=== PATIENT | male | born 1970 | race African-American/Black ===

== ENCOUNTER 2019-07-27 23:37 | Emergency (ER) | payer OTHER ==
[~2019-07-27] VITALS: Ht 185.4 cm; Wt 93.2 kg
[2019-07-28] MEDS ORDERED: ATOR1TAB21 PO (00:14)
[2019-07-28] MEDS ORDERED: COLA100C5 PO (00:14)
[2019-07-28] MEDS ORDERED: NOVOINJ12 SC (00:14)
[2019-07-28] MEDS ORDERED: PROV108A INH (00:14)
[2019-07-28] MEDS ORDERED: LISI10TA4 PO (00:14)
[2019-07-28] MEDS ORDERED: ASPI81CH33 PO (00:14)
[2019-07-28] MEDS ORDERED: NITR0.4S14 SL (00:14)
[2019-07-28] MEDS ORDERED: INSULANT SC (00:14)
[2019-07-28] MEDS ORDERED: [UNRECOGNIZED DRUG - CODE] XX (00:14)
[2019-07-28 00:43] LABS: BASO % 0.2 % (0.0-1.0); HEMATOCRIT 44.3 % (42.0-52.0); HEMOGLOBIN 14.9 g/dl (13.5-17.5); LYMPH # 1.8 10^3/uL (1.5-5.0); LYMPH % 17.6 % (24.0-44.0); MEAN CORPUSCULAR HGB CONC 33.6 g/dl (32.0-36.5); MEAN CORPUSCULAR VOLUME 86.2 fl (80.0-96.0); MONO # 0.4 10^3/uL (0.0-0.8); MONO % 3.9 % (0.0-5.0); NEUTROPHILS # 8.1 10^3/uL (1.5-8.5); NEUTROPHILS % 77.9 % (36.0-66.0); PLATELET COUNT, AUTOMATED 268 10^3/uL (150-450); RED BLOOD COUNT 5.14 10^6/uL (4.30-6.10); WHITE BLOOD COUNT 10.3 10^3/uL (4.0-10.0)
[2019-07-28 01:23] LABS: ALBUMIN 3.7 GM/DL (3.2-5.2); ALT/SGPT 59 U/L (12-78); BILIRUBIN,DIRECT 0.1 MG/DL (0.0-0.2); BILIRUBIN,TOTAL 0.4 MG/DL (0.2-1.0); CK-MB VALUE MASS 10.8 NG/ML (<3.6); CPK CREATINE PHOSPHOKINASE 1321 U/L (39-308); LIPASE 153 U/L (73-393); MB/CK RELATIVE INDEX 0.82 (< OR =4); TOTAL PROTEIN 7.2 GM/DL (6.4-8.2); TROPONIN I 1.52 NG/ML (< 0.10)
[2019-07-28] MEDS ORDERED: HEPARIN DRIP 25,000 UNITS in IV 1 EA IV SCH (01:29)
[2019-07-28] MEDS ORDERED: KETOROLAC 30 MG/ML VIAL (J1885) IV ONE (01:30)
[2019-07-28] MEDS ORDERED: NS 1,000 ML IV ONE (01:30)
[2019-07-28] MEDS ORDERED: IPRATROPIUM 0.5MG/ALBUTEROL 2.5MG INH SOL UD 3ML (DUONEB)(J7620) NEB ONE (01:30)
[2019-07-28] MEDS ORDERED: HEPARIN SOD (PORCINE) 5000 UNITS/ML VIAL IV ONE (01:30)
[2019-07-28] MEDS ORDERED: CLOPIDOGREL 300 MG TAB (PLAVIX) PO ONE (01:30)
[2019-07-28] MEDS ORDERED: NITROGLYCERIN 2% OINT 1 GM *U/D* PKT TOP ONE (01:30)
[2019-07-28] MEDS ORDERED: ONDANSETRON 4MG/2ML VIAL (J2405) As Ordered ONE (01:33)
[2019-07-28 01:35] LABS: VENOUS BASE EXCESS 1.2 (-2.0-2.0); VENOUS HCO3 28.5 MEQ/L (23.0-27.0); VENOUS PARTIAL PRESSURE CO2 55.6 mmHg (38.0-50.0); VENOUS PARTIAL PRESSURE O2 35.5 mmHg (30.0-50.0); VENOUS PH 7.328 UNITS (7.330-7.430); VENOUS STANDARD HCO3 24.6 MEQ/L; VENOUS TOTAL CO2 30.2 MEQ/L (24.0-28.0)
[2019-07-28 01:41] LABS: BLOOD UREA NITROGEN 16 MG/DL (7-18); CALCIUM LEVEL 9.5 MG/DL (8.5-10.1); CARBON DIOXIDE LEVEL 30 MEQ/L (21-32); CHLORIDE LEVEL 102 MEQ/L (98-107); CREATININE FOR GFR 1.36 MG/DL (0.70-1.30); GLOMERULAR FILTRATION RATE > 60.0 (>60); GLUCOSE, FASTING 270 MG/DL (70-100); POTASSIUM SERUM 4.4 MEQ/L (3.5-5.1); SODIUM LEVEL 138 MEQ/L (136-145)
[2019-07-28] MEDS ORDERED: ONDANSETRON 4MG/2ML VIAL (J2405) IV ONE (01:45)
[2019-07-28 01:48] LABS: OSMOLALITY SERUM 310 MOSM/KG (275-295)
[2019-07-28 01:55] VITALS: BP 163/93
[2019-07-28 02:04] LABS: INR 1.03; PROTHROMBIN TIME 13.3 SECONDS (11.8-14.0)
[2019-07-28 03:38] LABS: PARTIAL THROMBOPLASTIN TIME 23.6 SECONDS (25.0-38.4)
[2019-07-28 04:55] VITALS: BP 133/68
--- NOTE | 2019-07-28 07:51 | ECGEPIP ---
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
--- NOTE | 2019-07-28 08:25 | REP ---
Portable chest x-ray: Single view. History: Chest pain. No comparison study. Findings: EKG monitoring electrodes are seen. Lungs are well inflated and clear. The heart is not enlarged. Pulmonary vasculature is not increased. No significant bony abnormality is appreciated. Impression: Negative portable chest x-ray. Electronically Signed by Daryl Glover MD 07/28/2019 08:17 A
== END 2019-07-28 05:01 | disposition short-term general hospital (02) ==
LOC: M ED 23:37
DX: I21.4 Non-ST elevation (NSTEMI) myocardial infarction (principal); I45.10 Unspecified right bundle-branch block; E11.9 Type 2 diabetes mellitus without complications; I10 Essential (primary) hypertension; J45.909 Unspecified asthma, uncomplicated; F17.200 Nicotine dependence, unspecified, uncomplicated; Z79.82 Long term (current) use of aspirin; Z79.4 Long term (current) use of insulin; Z79.899 Other long term (current) drug therapy; Z91.018 Allergy to other foods
CPT/HCPCS: 71045; 80047; 80048; 80076; 82550; 82553; 82803; 83690; 83930; 84484; 85025; 85610; 85730; 93005; 93041; 94640; 96361; 96374; 96375; 99285; J2405